=== PATIENT | female | born 1960 | race Caucasian/White ===

== ENCOUNTER 2017-01-10 19:28 | Emergency (ER) | payer BC, OTHER ==
[2017-01-10] MEDS ORDERED: Ondansetron INJ* 2 MG/ML VIAL IV ONE (20:57)
[2017-01-10] MEDS ORDERED: NS 0.9% 1000 ML* 1,000 ML IV ONE ×2 (20:57→23:03)
[2017-01-10] MEDS ORDERED: Morphine INJ* 4 MG/ML 1 ML SYRINGE IV ONE (20:57)
[2017-01-10 21:18] LABS: Hematocrit 42 % (35-47); Hemoglobin 13.4 g/dl (12.0-16.0); Mean Corpuscular HGB Conc 32 g/dl (31-36); Mean Corpuscular Hemoglobin 28 pg (27-31); Mean Corpuscular Volume 87 fL (80-97); Mean Platelet Volume 7 um3 (7.4-10.4); Red Blood Count 4.81 10^6/ul (4.0-5.4); Red Cell Distribution Width 13 % (10.5-15); White Blood Count 6.7 10^3/ul (3.5-10.8)
--- NOTE | 2017-01-10 21:31 | RAD ---
Indication: Global headache. Dizziness. History of migraines. Pain extends into the neck. Comparison: None. Technique: Noncontrast CT vertex of skull through foramen magnum. Report: The sulci, ventricles, and basal cisterns are normal for age. [place] matter white matter differentiation is preserved without evidence for edema. No intra or extra axial hemorrhage, mass, or fluid collection detected. Unremarkable visualized orbital contents. Indolent thickening of the inner table of the frontal bone. Congenital incomplete fusion of the posterior arch of C1. No suspicious osseous lesions evident. Unremarkable scalp. The visualized paranasal sinuses and mastoid air spaces are clear. IMPRESSION: Negative unenhanced head CT.
[2017-01-10 21:33] LABS: BUN/Creatinine Ratio 19.4 (8-20); C Reactive Protein 1.63 mg/L (< 5.00); Calcium 9.2 mg/dL (8.6-10.3); EGFR African American 80.5 (>60); EGFR Non-African American 62.6 (>60); Potassium 3.8 mmol/L (3.5-5.0); Total Bilirubin 0.3 mg/dL (0.2-1.0)
[2017-01-10 21:56] LABS: Urine Bilirubin Negative (Negative); Urine Glucose Negative (Negative); Urine Nitrite Negative (Negative)
[2017-01-10 22:11] LABS: TSH (Thyroid Stimulating Horm) 4.34 mcIU/mL (0.34-5.60)
[2017-01-10] MEDS ORDERED: Metoclopramide IV* 5 MG/ML 2 ML VIAL IV ONE (23:03)
[2017-01-10] MEDS ORDERED: Ketorolac INJ* 30 MG/ML 1 ML VIAL IV ONE (23:03)
--- NOTE | 2017-01-11 00:21 | ED ---
Renee Dorantes Alok, scribed for José Miguel Muhammad MD on 01/10/17 at 2125 . Headache - HPI Summary HPI Summary: 56 y/o female presents to the ED with a constant, diffuse KHAN waxing and waning in intensity since this morning. Pt states that this KHAN which began as a slight KHAN at the base of the neck upon waking up with morning progressed into a diffuse KHAN throughout her whole head worsening at 1900 when the pt began to feel loss of balance causing her to fall, dizziness, and tingling of the hands and feet. At worst her KHAN registers at a 8 out of 10 in severity and is currently at a 4. Pt has taken maxalt and aspirin in order to alleviate her KHAN with no effect. Her KHAN is worsened with head movement. Pt adds photophobia and improvement with darkness. Pt denies fever, nausea, chills, slurred speech, rhinorrhea, sore throat, or cough. Pt denies numbness or tingling currently but does note her hand and feet feel cold. Pt denies blood thinner use or auto immune suppressor. PMHx includes h/o low grade fever as well as migraines though the pt states that her KHAN today does not feel like a typical migraine for her which are usually one sided. 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 She has a future surgery for her left eye scheduled as well in one month. Pt states she is allergic to Imitrex. - History Of Current Complaint Chief Complaint: EDHeadache Stated Complaint: HEADACHE/DIZZY Time Seen by Provider: 01/10/17 20:30 Hx Obtained From: Patient Onset/Duration: Gradual Onset, Started hours ago, Still Present, Worse Since - 1900 today Initially Headache Was: Mild Currently Pain Is: Current Pain Scale(0-10)= - 4, Moderate Timing: Constant - Waxing and waning Location of Headache: Diffuse, Other: - Base of neck Aggravating Factor: Position Change, Bright Lights Allevating Factors: Other (Noted In Comments) - Darkness Associated Signs And Symptoms: Dizziness, Neck Pain - Allergies/Home Medications Allergies/Adverse Reactions: Allergies Allergy/AdvReac Type Severity Reaction Status Date / Time Sumatriptan [From Imitrex] Allergy Edema Verified 01/10/17 19:54 PMH/Surg Hx/FS Hx/Imm Hx Neurological History: Reports: Hx Migraine Infectious Disease History: No Infectious Disease History: Denies: Traveled Outside the [place] in Last 30 Days - Family History Known Family History: Negative: Diabetes - Social History Alcohol Use: None Substance Use Type: Reports: None Smoking Status (MU): Never Smoked Tobacco Review of Systems Negative: Fever, Chills Positive: Photophobia Negative: Sore Throat, Nasal Discharge Negative: Cough Negative: Nausea Positive: Other - Neck Pain Neurological: Other - Dizziness, Loss of balance Positive: Headache, Numbness - Present earlier. None currently.. Negative: Slurred Speech All Other Systems Reviewed And Are Negative: Yes Physical Exam Triage Information Reviewed: Yes Vital Signs On Initial Exam: Initial Vitals Temp Pulse Resp BP Pulse Ox 98.2 F 78 16 134/78 100 01/10/17 19:45 01/10/17 19:45 01/10/17 19:45 01/10/17 19:45 01/10/17 19:45 Vital Signs Reviewed: Yes Appearance: Positive: Well-Appearing, Pain Distress - Moderate Skin: Positive: Warm, Skin Color Reflects Adequate Perfusion, Dry Head/Face: Positive: Normal Head/Face Inspection Eyes: Positive: Other: - Pupils Reactive ENT: Positive: Normal ENT inspection Neck: Positive: Supple, Nontender Respiratory/Lung Sounds: Positive: Clear to Auscultation, Breath Sounds Present Cardiovascular: Positive: RRR Abdomen Description: Positive: Nontender, Soft Bowel Sounds: Positive: Present Musculoskeletal: Positive: Normal, Strength/ROM Intact Neurological: Positive: Normal, Sensory/Motor Intact, Alert, Oriented to Person Place, Time, Other - No focal/neurological deficit Psychiatric: Positive: Affect/Mood Appropriate - [place] Coma Scale Coma Scale Total: 15 Diagnostics - Vital Signs Vital Signs Temp Pulse Resp BP Pulse Ox 01/10/17 20:03 77 98 01/10/17 20:01 146/84 01/10/17 19:45 98.2 F 78 16 134/78 100 - Laboratory Lab Results: Lab Results 01/10/17 01/10/17 01/10/17 Range/Units 21:10 21:10 21:10 WBC 6.7 (3.5-10.8) 10^3/ul RBC 4.81 (4.0-5.4) 10^6/ul Hgb 13.4 (12.0-16.0) g/dl Hct 42 (35-47) % MCV 87 (80-97) fL MCH 28 (27-31) pg MCHC 32 (31-36) g/dl RDW 13 (10.5-15) % Plt Count 259 (150-450) 10^3/ul MPV 7 L (7.4-10.4) um3 Neut % (Auto) 54.7 (38-83) % Lymph % (Auto) 34.9 (25-47) % [place] % (Auto) 8.4 (1-9) % Eos % (Auto) 1.6 (0-6) % Baso % (Auto) 0.4 (0-2) % Absolute Neuts (auto) 3.7 (1.5-7.7) 10^3/ul Absolute Lymphs (auto) 2.3 (1.0-4.8) 10^3/ul Absolute Monos (auto) 0.6 (0-0.8) 10^3/ul Absolute Eos (auto) 0.1 (0-0.6) 10^3/ul Absolute Basos (auto) 0 (0-0.2) 10^3/ul Absolute Nucleated RBC 0 10^3/ul Nucleated RBC % 0 INR (Anticoag Therapy) 0.89 (0.89-1.11) APTT 30.0 (26.0-36.3) seconds Sodium 134 (133-145) mmol/L Potassium 3.8 (3.5-5.0) mmol/L Chloride 102 (101-111) mmol/L Carbon Dioxide 24 (22-32) mmol/L Anion Gap 8 (2-11) mmol/L BUN 18 (6-24) mg/dL Creatinine 0.93 (0.51-0.95) mg/dL Est GFR ( Amer) 80.5 (>60) Est GFR (Non-Af Amer) 62.6 (>60) BUN/Creatinine Ratio 19.4 (8-20) Glucose 90 (70-100) mg/dL Lactic Acid (0.5-2.0) mmol/L Calcium 9.2 (8.6-10.3) mg/dL Magnesium 2.0 (1.9-2.7) mg/dL Total Bilirubin 0.30 (0.2-1.0) mg/dL AST 19 (13-39) U/L ALT 19 (7-52) U/L Alkaline Phosphatase 66 (34-104) U/L C-Reactive Protein 1.63 (< 5.00) mg/L Total Protein 7.0 (6.4-8.9) g/dL Albumin 4.0 (3.2-5.2) g/dL Globulin 3.0 (2-4) g/dL Albumin/Globulin Ratio 1.3 (1-3) Lipase 41 (11.0-82.0) U/L TSH 4.34 (0.34-5.60) mcIU/mL Urine Color Urine Appearance Urine pH (5-9) Ur Specific [place] (1.010-1.030) Urine Protein (Negative) Urine Ketones (Negative) Urine Blood (Negative) Urine Nitrate (Negative) Urine Bilirubin (Negative) Urine Urobilinogen (Negative) Ur Leukocyte Esterase (Negative) Urine Glucose (Negative) 01/10/17 01/10/17 Range/Units 21:10 21:47 WBC (3.5-10.8) 10^3/ul RBC (4.0-5.4) 10^6/ul Hgb (12.0-16.0) g/dl Hct (35-47) % MCV (80-97) fL MCH (27-31) pg MCHC (31-36) g/dl RDW (10.5-15) % Plt Count (150-450) 10^3/ul MPV (7.4-10.4) um3 Neut % (Auto) (38-83) % Lymph % (Auto) (25-47) % [place] % (Auto) (1-9) % Eos % (Auto) (0-6) % Baso % (Auto) (0-2) % Absolute Neuts (auto) (1.5-7.7) 10^3/ul Absolute Lymphs (auto) (1.0-4.8) 10^3/ul Absolute Monos (auto) (0-0.8) 10^3/ul Absolute Eos (auto) (0-0.6) 10^3/ul Absolute Basos (auto) (0-0.2) 10^3/ul Absolute Nucleated RBC 10^3/ul Nucleated RBC % INR (Anticoag Therapy) (0.89-1.11) APTT (26.0-36.3) seconds Sodium (133-145) mmol/L Potassium (3.5-5.0) mmol/L Chloride (101-111) mmol/L Carbon Dioxide (22-32) mmol/L Anion Gap (2-11) mmol/L BUN (6-24) mg/dL Creatinine (0.51-0.95) mg/dL Est GFR ( Amer) (>60) Est GFR (Non-Af Amer) (>60) BUN/Creatinine Ratio (8-20) Glucose (70-100) mg/dL Lactic Acid 1.0 (0.5-2.0) mmol/L Calcium (8.6-10.3) mg/dL Magnesium (1.9-2.7) mg/dL Total Bilirubin (0.2-1.0) mg/dL AST (13-39) U/L ALT (7-52) U/L Alkaline Phosphatase (34-104) U/L C-Reactive Protein (< 5.00) mg/L Total Protein (6.4-8.9) g/dL Albumin (3.2-5.2) g/dL Globulin (2-4) g/dL Albumin/Globulin Ratio (1-3) Lipase (11.0-82.0) U/L TSH (0.34-5.60) mcIU/mL Urine Color Colorless Urine Appearance Clear Urine pH 7.0 (5-9) Ur Specific [place] 1.002 L (1.010-1.030) Urine Protein Negative (Negative) Urine Ketones Negative (Negative) Urine Blood Negative (Negative) Urine Nitrate Negative (Negative) Urine Bilirubin Negative (Negative) Urine Urobilinogen Negative (Negative) Ur Leukocyte Esterase Negative (Negative) Urine Glucose Negative (Negative) Result Diagrams: 01/10/17 21:10 01/10/17 21:10 Lab Statement: Any lab studies that have been ordered have been reviewed, and results considered in the medical decision making process. - CT Head CT CT Interpretation: Positive (See Comments) - IMPRESSION: Negative unenhanced head CT. CT Interpretation Completed By: Radiologist Re-Evaluation - Re-Evaluation First Eval Re-Evaluation Time: 22:43 Change: Unchanged Comment: Discussed Lab results with pt Headache Course/Dx - Course Course Of Treatment: NO CRITICAL CARE TIME Assessment/Plan: IMPROVED IN ED. DISCUSSED WITH DR ACOSTA. KHAN IS MOST PROBABLY A MIGRAINE VARIANT. RESULTS DISCUSSED WITH PATIENT/. DISCHARGE HOME STABLE. - Diagnoses Provider Diagnoses: Headache - Physician Notifications Discussed Care Of Patient With: Dr. Acosta (Neuro) @ 2300 Discharge - Discharge Plan Condition: Stable Disposition: HOME Patient Education Materials: Acute Headache (ED) Referrals: Cecilio Velasco MD [Primary Care Provider] - Additional Instructions: FOLLOW UP WITH YOUR DOCTOR. RETURN TO THE EMERGENCY DEPARTMENT FOR ANY WORSENING OF YOUR CONDITION; PAIN, WEAKNESS, NUMBNESS, CHANGE IN VISION, DIFFICULTY WITH SPEECH OR QUESTIONS OR CONCERNS. The documentation as recorded by the Renee ronquillo Alok accurately reflects the service I personally performed and the decisions made by me, José Miguel Muhammad MD.
[2017-01-11 01:00] VITALS: BP 112/66
== END 2017-01-11 01:00 | disposition home or self-care (01) ==
LOC: ED 19:28
DX: R51 Headache (principal); R42 Dizziness and giddiness; H53.149 Visual discomfort, unspecified; M54.2 Cervicalgia
CPT/HCPCS: 36415; 70450; 80053; 81003; 83605; 83690; 83735; 84443; 85025; 85610; 85730; 86140; 96374; 96375; 99283; J1885; J2270; J2405